=== PATIENT | male | born 1950 | race Caucasian/White ===

== ENCOUNTER 2016-10-11 06:51 | Day surgery (SDC) | payer OTHER, BC ==
[2016-10-11] MEDS ORDERED: NS 500 ML IV 500 ML IV ONE (07:22)
[2016-10-11] MEDS ORDERED: TETRACAINE 0.5% OPHTH 1 DOSE AFFEYE ONE ×6 (07:25→10:59)
[2016-10-11] MEDS ORDERED: VIGAMOX 0.5% OPHTH 1 DOSE AFFEYE ONE ×6 (07:30→11:13)
[2016-10-11] MEDS ORDERED: PROLENSA OPHTH 1 DOSE AFFEYE ONE (07:41)
[2016-10-11] MEDS ORDERED: ALPHAGAN-P OPHTH 1 DOSE AFFEYE ONE (07:42)
[2016-10-11] MEDS ORDERED: CYCLOGYL 1% OPHTH 1 DOSE OP ONE ×3 (07:43→07:45)
[2016-10-11] MEDS ORDERED: AK-DILATE 2.5% OPHTH 1 DOSE OP ONE ×3 (07:43→07:45)
[2016-10-11] MEDS ORDERED: MYDRIACIL OPHTH 1 DOSE AFFEYE ONE ×3 (07:43→07:45)
[2016-10-11] MEDS: VERSED ONE ×5 (10:05→10:34)
[2016-10-11] MEDS ORDERED: AK-DILATE 10% OPHTH 1 DOSE AFFEYE ONE ×3 (10:06→10:35)
[2016-10-11] MEDS ORDERED: BETADINE OPHTH SOLN 5% EACHEYE ONE (10:42)
[2016-10-11] MEDS ORDERED: XYLOCAINE-MPF 1% IJ ONE ×2 (10:49→10:59)
[2016-10-11] MEDS ORDERED: DUOVISC IO ONE ×2 (10:49→10:59)
[2016-10-11] MEDS ORDERED: ADRENALINE CHL INJ IJ ONE ×2 (10:49→10:59)
[2016-10-11] MEDS ORDERED: BSS OPHTH (PLAIN) 500 ML with VANCOMYCIN HCL 500 MG VIAL 25 MG, ADRENALINE CHL INJ 1 MG IR ONE ×6 (10:50)
[2016-10-11] MEDS ORDERED: MIOCHOL-E IO ONE (11:10)
[2016-10-11 11:37] VITALS: BP 161/86
== END 2016-10-11 11:38 | disposition home or self-care (01) ==
LOC: SURG1 06:51
PROVIDERS: ATTEND Ophthalmology
PROC: 08J1XZZ Inspection of Left Eye, External Approach (ICD-10-PCS; principal; 2016-10-11 09:45)
PROC: 08DK3ZZ Extraction of Left Lens, Percutaneous Approach (ICD-10-PCS; principal; 2016-10-11 09:45)
PROC: 08RK3JZ Replacement of Left Lens with Synthetic Substitute, Percutaneous Approach (ICD-10-PCS; principal; 2016-10-11 09:45)
DX: H25.12 Age-related nuclear cataract, left eye (principal); H25.012 Cortical age-related cataract, left eye; H52.222 Regular astigmatism, left eye
CPT/HCPCS: A4217; J0170; J2250; J3370

== ENCOUNTER → 2016-12-31 | Outpatient (CLI) | payer OTHER | END | disposition home or self-care (01) | LOC: LAB 09:14 | PROVIDERS: ATTEND Internal Medicine | DX: R19.7 Diarrhea, unspecified (principal) | CPT/HCPCS: 82270 ==

== ENCOUNTER 2020-04-06 11:33 | Inpatient (IN) ==
[2020-04-06 12:39] LABS: BILIRUBIN,URINE NEGATIVE (NEGATIVE); BLOOD/HEMOGLOBIN,URINE NEGATIVE (NEGATIVE); GLUCOSE, URINE NEGATIVE (NEGATIVE); KETONES,URINE NEGATIVE (NEGATIVE); LEUKOCYTE ESTERASE ,URINE NEGATIVE (NEGATIVE); NITRITES,URINE NEGATIVE (NEGATIVE); PROTEIN,URINE 2+ (NEGATIVE); UROBILINOGEN,URINE NORMAL (NORMAL)
--- NOTE | 2020-04-06 12:39 | DR.SOBA ---
[facility] Time Seen Time Seen by Provider: 04/06/20 12:31 Primary Care Physician Primary Care Physician: DR MEEK HPI Comment HPI Comment: PATIENT IS 89 YR OLD MALE IN ER WITH INCREASING SOB, LOW OXYGEN SATURATION AND STABBING INTERMITTENT 9/10 SUBSTERNAL CHEST PAIN RADIATING TO THE BACK. PAIN ASSOCIATED WITH PRODUCTIVE COUGH, YELLOW SPUTUM AND GENERALIZED WEAKNESS AND BODY ACHES. PAIN WORSE WITH DEEP BREATHING AND EXERTION AND IMPROVE WITH REST. COVID 19 POSITIVE ON ZITHROMAX AND PREDNISONE. HISTORY CAD AND HYPERTENSION. Complaints Chief Complaint Doctors Comments: CHEST PAIN, INCREASING SOB AND O2 DESATURATION. Chief Complaint:: PT TEST POSITIVE FOR COVID MONDAY AND HAS BEEN TREATED WITH ZITHROMAX AND STEROIDS. SINCE THEN PT HAS HAD INCREASING SHORTNESS OF BREATH WI TH OXYGEN SATURATION 50%. PT ALSO C/O SHARP STABBING SUBSTERNAL CHEST PAIN THAT IS INTERMITTENT AND WORSE WITH TAKING A DEEP BREATH.PT SPOKE WITH PCP THIS MORNING WHO DIRECTED HIM TO THE ER COVID-19 Coronavirus risk:travel/contact w/high risk person: No Has patient experienced Coronavirus symptoms: Yes Coronavirus symptoms experienced: Coughing and Shortness of Breath Reviewed Nurses Notes Reviewed: Yes Source History Provided: Patient Mode of Arrival Mode of Arrival: Ambulatory Timing Onset of Chief Complaint: 04/06/20 Duration Duration: Days Context Onset:: At Rest PE Risk Factors:: None History of:: None Currently on:: Steroids Prehospital Care:: None Modifying Factors Worsens:: Exertion Improves:: Sitting Up Associated Signs and Symptoms Associated Signs and Symptoms: Cough and Chest Pain If Chest Pain Quality: Stabbing Location: Substernal If Cough Cough: Productive and Yellow Other History Other History: CAD, HTN. PMH PMH Past Medical History: Yes Past Medical History: Arthritis, Coronary Artery Disease, Dyslipidemia, Hypertension and Kidney Stones Past Medical History Comment: FIBROMYALGIA, AFIB Past Surgical History: Yes Surgical History: Angioplasty/Stents and Lithotripsy Family History History of Family Medical Conditions: Yes Family Medical History: [place] Social History Does patient currently use any type of tobacco product: No Have you used tobacco products in the last 12 months: No Type of Tobacco Use: None Does any household member use tobacco: No Alcohol Use: None Do you use any recreational Drugs:: No Lives With: Family Lives Where: Home Travel Risk Coronavirus risk:travel/contact w/high risk person: No Has patient experienced Coronavirus symptoms: No Infectious screening In the last 2 months have you had wt loss of >10#?: NO Have you had fever, night sweats or hemotysis?: No Have you traveled outside the country in the last 6 months?: No Isolation: Droplet ROS Review of Systems Constitutional: See HPI, Weakness, Fatigue and Loss of Appetite; negative Fever Eyes: No Symptoms Reported and See HPI ENTM: See HPI, Nose Discharge and Nose Congestion; negative Ear Pain and Throat Pain Respiratoy: See HPI, Productive Cough and Short of Breath; negative Wheezing Cardiovascular: See HPI and Chest Pain Gastrointestinal/Abdominal: No Symptoms Reported and See HPI; negative Abdominal Pain, Diarrhea and Vomiting Genitourinary: No Symptoms Reported and See HPI; negative Dysuria, Frequency and Hematuria Neurological: See HPI, Headache and Weakness; negative Dizziness Musculoskeletal: See HPI and Muscle Pain; negative Back Pain Integumentary: No Symptoms Reported and See HPI; negative Change in Color, Rash and Juandice Hematologic/Lymphatic: No Symptoms Reported, See HPI and Easy Bruising; negative Swollen Glands Endocrine: No Symptoms Reported, See HPI and Decreased Appetite; negative Increased Thirst and Increased Urine Psychiatric: No Symptoms Reported and See HPI All Other Systems: Reviewed and Negative PE Vital Signs Vitals: Temperature 98.9 F Pulse Rate 82 Respiratory Rate 22 Blood Pressure 141/72 O2 Sat by Pulse Oximetry 99 General Limitations: No Limitations General Appearance: Alert and In No Apparent Distress Head Head Exam: Normal Inspection and Atraumatic Eyes Eye exam: Normal Appearance and PERRL; negative Scleral Icterus and Conjunctival Injection ENT ENT Exam: Normal Exam, Normal Oropharynx, Normal External Ear Exam and TM's Normal Bilaterally Neck Neck Exam: Normal Inspection and Trachea Midline; negative Tenderness and Lymphadenopathy Chest Chest Inspection: Normal Inspection and Symmetric Chest Wall Rise; negative Tenderness Respiratory Respiratory Exam: Normal Lung Sounds Bilat and Respiratory Distress; negative Accessory Muscle Use and Chest Wall Tenderness Respiratory Exam: Bilateral: Rhonchi and Lower: Rhonchi Cardiovascular Cardiovascular Exam: Regular Rate, Normal Rhythm and Normal Heart Sounds; negative Systolic Murmur and Diastolic Murmur Abdominal Exam Abdominal Exam: Normal Inspection, Normal Bowel Sounds and Soft; negative Tenderness Extremities Extremities Exam: Normal Inspection and Normal Capillary Refill; negative Tenderness and Calf Tenderness Back Back Exam: Normal Inspection; negative (R) CVA Tenderness and (L) CVA Tenderness Neurologic Neurological Exam: Alert and Oriented X3; negative Motor Sensory Deficit Psychiatric Psychiatric Exam: Normal Affect and Normal Mood Skin Skin Exam: Warm, Dry, Intact and Normal Color MDM Additional Information Obtained Additional Information Obtained From: Old Records Differential Diagnosis Differential Diagnosis: Bronchitis, CHF, Dysrhythmia, Hyponatremia, Mycardial Infarction, Pneumonia, Respiratory Insufficiency, Sinusitis and URI COURSE Treatment Treatment: SEE ORDERS. ZOSYN 3.375 MG IVPB Consultation Consultation Comments: PATIENT ADMITTED TO DR. MEEK SERVICE. Education/Counseling Education/Counseling: Patient Educated On: Diagnosis ROR Labs Reviewed Laboratory Results Reviewed?: Yes Result Diagrams: 04/09/20 04:25 04/09/20 04:25 Laboratory: 04/06/20 12:50 Blood Blood Culture - Preliminary 04/06/20 12:45 Blood Blood Culture - Preliminary WBC 5.2 X10^3/uL (3.6-10.0) 04/06/20 12:50 RBC 4.50 X10^6/uL (4.7-6.0) L 04/06/20 12:50 Hgb 14.1 g/dL (13.5-18.0) 04/06/20 12:50 Hct 41.2 % (42.0-54.0) L 04/06/20 12:50 MCV 91.6 fL (80.0-100.0) 04/06/20 12:50 MCH 31.4 pg (27.0-34.0) 04/06/20 12:50 MCHC 34.3 g/dL (33.0-35.0) 04/06/20 12:50 RDW 14.6 % (11.6-16.5) 04/06/20 12:50 Plt Count 110 X10^3/uL (150.0-450.0) L 04/06/20 12:50 MPV 7.3 fL (7.4-11.0) L 04/06/20 12:50 Neut % (Auto) 82.9 % (42.0-75.0) H 04/06/20 12:50 Lymph % (Auto) 10.4 % (21.0-51.0) L 04/06/20 12:50 [place] % (Auto) 6.5 % (0.0-13.0) 04/06/20 12:50 Eos % (Auto) 0.0 % (0.9-2.9) L 04/06/20 12:50 Baso % (Auto) 0.2 % (0.2-1.0) 04/06/20 12:50 Neut # (Auto) 4.3 x10^3/uL (2.2-4.8) 04/06/20 12:50 Lymph # (Auto) 0.5 X10^3/uL (1.3-2.9) L 04/06/20 12:50 [place] # (Auto) 0.3 x10^3/uL (0.3-0.8) 04/06/20 12:50 Eos # (Auto) 0.0 x10^3/uL (0.0-0.2) 04/06/20 12:50 Baso # (Auto) 0.0 X10^3/uL (0.0-0.1) 04/06/20 12:50 Absolute Nucleated RBC 0.0 /100WBC 04/06/20 12:50 Sample Site Right radial 04/06/20 12:45 ABG pH 7.480 (7.35-7.45) H 04/06/20 12:45 ABG pCO2 30.0 mmHg (35.0-45.0) L 04/06/20 12:45 ABG pO2 76.0 mmHg (80.0-100.0) L 04/06/20 12:45 ABG HCO3 22.3 mmol/L (22-26) 04/06/20 12:45 ABG O2 Saturation 96.0 % (90-100) 04/06/20 12:45 ABG Base Excess -0.4 mmol/L (-2.0-2.0) 04/06/20 12:45 Jose Test Pos 04/06/20 12:45 A-a Gradient 36.0 mmHg 04/06/20 12:45 FiO2 21.0 04/06/20 12:45 Blood Gas Comments Carmelo well cb 04/06/20 12:45 Sodium 137 mmol/L (136-145) 04/06/20 12:50 Corrected Sodium TNP 04/06/20 12:50 Potassium 4.1 mmol/L (3.5-5.1) 04/06/20 12:50 Chloride 102 mmol/L (98-107) 04/06/20 12:50 Carbon Dioxide 28.1 mmol/L (21-32) 04/06/20 12:50 BUN 28 mg/dL (7-18) H 04/06/20 12:50 Creatinine 1.48 mg/dL (0.70-1.30) H 04/06/20 12:50 Est GFR (MDRD) Af Amer > 60 (>60) 04/06/20 12:50 Est GFR (MDRD) Non-Af 50 (>60) L 04/06/20 12:50 Glucose 91 mg/dL (65-99) 04/06/20 12:50 Lactic Acid 1.6 mmol/L (0.4-2.0) 04/06/20 12:50 Calcium 8.2 mg/dL (8.5-10.1) L 04/06/20 12:50 Corrected Calcium 8.8 mg/dL (8.5-10.1) 04/06/20 12:50 Ferritin 2202 ng/mL (26-388) H 04/06/20 12:50 Total Bilirubin 0.90 mg/dL (0.2-1.0) 04/06/20 12:50 AST 73 Units/L (15-37) H 04/06/20 12:50 ALT 64 Units/L (12-78) 04/06/20 12:50 Alkaline Phosphatase 85 Units/L (46-116) 04/06/20 12:50 Lactate Dehydrogenase 372 Units/L (85-227) H 04/06/20 12:50 Creatine Kinase 99 Units/L (39-308) 04/06/20 12:50 CK-MB (CK-2) < 1.0 ng/mL (0-4.0) 04/06/20 12:50 CK/CKMB % Calc 1.0 % (<4) 04/06/20 12:50 Troponin I < 0.02 ng/mL (0-1.5) 04/06/20 12:50 C-Reactive Protein 63.10 mg/L (0-3.0) H 04/06/20 12:50 Total Protein 7.2 g/dL (6.4-8.2) 04/06/20 12:50 Albumin 3.2 g/dL (3.4-5.0) L 04/06/20 12:50 Globulin 4.0 g/dL (2.5-4.5) 04/06/20 12:50 Albumin/Globulin Ratio 0.8 Ratio (1.1-2.1) L 04/06/20 12:50 Specimen Type Clean catch urine 04/06/20 12:34 Urine Color Yellow (YELLOW) 04/06/20 12:34 Urine Appearance Clear (CLEAR) 04/06/20 12:34 Urine pH 5.0 (5.0 - 8.0) 04/06/20 12:34 Ur Specific [place] 1.020 (1.000-1.030) 04/06/20 12:34 Urine Protein 2+ (NEGATIVE) 04/06/20 12:34 Urine Glucose (UA) Negative (NEGATIVE) 04/06/20 12:34 Urine Ketones Negative (NEGATIVE) 04/06/20 12:34 Urine Occult Blood Negative (NEGATIVE) 04/06/20 12:34 Urine Nitrite Negative (NEGATIVE) 04/06/20 12:34 Urine Bilirubin Negative (NEGATIVE) 04/06/20 12:34 Urine Urobilinogen Normal (NORMAL) 04/06/20 12:34 Ur Leukocyte Esterase Negative (NEGATIVE) 04/06/20 12:34 Urine RBC None seen /HPF (0-3) 04/06/20 12:34 Urine WBC None seen /HPF (0-5) 04/06/20 12:34 Ur Squamous Epith Cells Negative /HPF (NEGATIVE) 04/06/20 12:34 Ur Renal Epithelial Cell Rare /HPF (NEGATIVE) 04/06/20 12:34 Amorphous Sediment Trace /HPF (NEGATIVE) 04/06/20 12:34 Urine Bacteria Negative /HPF (NEGATIVE) 04/06/20 12:34 Ur Culture Indicated? No/not indicated 04/06/20 12:34 XRAY XRAY Interpreted by: Radiologist (REPORT NOTED AND DISCUSSED WITH PATIENT.) and Self EKG Rate: 87 [place]: Normal Rhythm: NSR and PACs Block: None Hypertrophy: None ST: Old, Ant, Infarct and Nonsp Opioid Opioid Risk Tool Age ([place] box if 16-45): No History of Preadolescent Sexual Abuse: No Total: 0 Total Score Risk Category: Low Risk Copyright: [facility] predicting aberrant behaviors Diagnosis Discharge Problem: COVID-19, Shortness of breath Pneumonia Qualifiers: Pneumonia type: due to unspecified organism Laterality: bilateral Lung location: lower lobe of lung Qualified Code(s): J18.9 - Pneumonia, unspecified organism
[2020-04-06 12:46] LABS: APPEARANCE,URINE CLEAR (CLEAR); COLOR,URINE YELLOW (YELLOW)
[2020-04-06 12:47] LABS: AMORPHOUS SEDIMENT,UR TRACE /HPF (NEGATIVE); BACTERIA,URINE NEGATIVE /HPF (NEGATIVE); RBC,URINE NONE SEEN /HPF (0-3); RENAL EPITHELIAL CELLS,URINE RARE /HPF (NEGATIVE); SQUAMOUS EPITHELIAL CELL,UR NEGATIVE /HPF (NEGATIVE)
[2020-04-06 12:58] LABS: ABG ALLEN TEST POS; ABG BASE EXCESS -0.4 mmol/L (-2.0-2.0); ABG HCO3 22.3 mmol/L (22-26)
[2020-04-06] MEDS ORDERED: XANAX PO ONE (13:00)
[2020-04-06 13:02] LABS: BASOPHILS % (AUTO) 0.2 % (0.2-1.0); HEMATOCRIT 41.2 % (42.0-54.0); HEMOGLOBIN 14.1 g/dL (13.5-18.0); LYMPHOCYTES # (AUTO) 0.5 X10^3/uL (1.3-2.9); LYMPHOCYTES % (AUTO) 10.4 % (21.0-51.0); MEAN CORPUSCULAR HEMOGLOBIN 31.4 pg (27.0-34.0); MEAN CORPUSCULAR HGB CONC 34.3 g/dL (33.0-35.0); MEAN CORPUSCULAR VOLUME 91.6 fL (80.0-100.0); MEAN PLATELET VOLUME 7.3 fL (7.4-11.0); MONOCYTES # (AUTO) 0.3 x10^3/uL (0.3-0.8); MONOCYTES % (AUTO) 6.5 % (0.0-13.0); NEUTROPHILS # (AUTO) 4.3 x10^3/uL (2.2-4.8); NEUTROPHILS % (AUTO) 82.9 % (42.0-75.0); PLATELET COUNT 110 X10^3/uL (150.0-450.0); RED CELL DISTRIBUTION WIDTH 14.6 % (11.6-16.5); WHITE BLOOD COUNT 5.2 X10^3/uL (3.6-10.0)
[2020-04-06] MEDS ORDERED: XANAX ONE (13:05)
[2020-04-06] MEDS ORDERED: NS 1000 ML 1,000 ML ONE (13:05)
[2020-04-06] MEDS ORDERED: ZOSYN VIAL 3.375 GRAMS 3.375 G in NS 100 ML IV + SPIKE MINIBAG* 100 ML IV ONE (13:14)
[2020-04-06 13:15] LABS: LACTIC ACID 1.6 mmol/L (0.4-2.0)
[2020-04-06 13:25] LABS: ALANINE AMINOTRANSFERASE 64 Units/L (12-78); ALKALINE PHOSPHATASE 85 Units/L (46-116); ASPARTATE AMINO TRANSFERASE 73 Units/L (15-37); BLOOD UREA NITROGEN 28 mg/dL (7-18); CALCIUM 8.2 mg/dL (8.5-10.1); CARBON DIOXIDE 28.1 mmol/L (21-32); CHLORIDE 102 mmol/L (98-107); CREATININE 1.48 mg/dL (0.70-1.30); SODIUM 137 mmol/L (136-145); TOTAL PROTEIN 7.2 g/dL (6.4-8.2); eGFR NON BLACK RACES 50 (>60)
[2020-04-06] MEDS: NS 1000 ML 1,000 ML IV SCH ×2 (13:26→20:59)
[2020-04-06 13:30] LABS: ALBUMIN 3.2 g/dL (3.4-5.0); COR CA(FOR HYPOALB) 8.8 mg/dL (8.5-10.1)
[2020-04-06 13:35] LABS: CREATINE KINASE 99 Units/L (39-308); CREATINE KINASE MB < 1.0 ng/mL (0-4.0); LACTATE DEHYDROGENASE 372 Units/L (85-227)
[2020-04-06 13:51] LABS: TROPONIN I < 0.02 ng/mL (0-1.5)
[2020-04-06] MEDS ORDERED: ZOSYN VIAL 3.375 GRAMS IV ONE (14:09)
[2020-04-06] MEDS ORDERED: NS 100 ML IV + SPIKE MINIBAG* 100 ML IV ONE (14:09)
[2020-04-06] MEDS: ZOSYN VIAL 3.375 GRAMS 3.375 G in NS 100 ML IV + SPIKE MINIBAG* 100 ML IV SCH ×2 (15:14→23:06)
--- NOTE | 2020-04-06 15:27 | RAD ---
HISTORY:Shortness of breath, COVID-19 positiveStudy: Single view chestComparison:NoneFindings:Lung volumes are reduced. There are bilateral multifocal lung infiltrates compatible with pneumonia. No pleural effusion or pneumothorax identified.Cardiac and mediastinal contours are within normal limits .The soft tissues are intact .IMPRESSION:1. Bilateral multifocal infiltrates compatible with pneumonia.Electronically signed by: SUSIE GALLEGOS (Apr 06, 2020 15:26:46)
[2020-04-06 16:19] VITALS: BMI 32.9
[2020-04-06] MEDS ORDERED: REMDESIVIR (INVESTIGATIONAL DRUG GS-5734) 200 MG in NS 250 ML IV 250 ML IV SCH (16:33)
[2020-04-06] MEDS: DUONEB 0.5 MG/3 MG (3 mL) NEB SCH ×2 (17:15→21:20)
[2020-04-06] MEDS: ROBITUSSIN DM PO SCH ×2 (17:52→23:06)
[2020-04-06] MEDS ORDERED: NS 500 ML IV 500 ML IV ONE (18:11)
[2020-04-06] MEDS: NS 500 ML IV 500 ML IV PRN (18:18)
[2020-04-06] MEDS: NORCO 10/325 TAB PO PRN (19:18)
[2020-04-06] MEDS: LEVAQUIN PREMIX IV 750 MG 750 MG/150 ML BAG IV SCH (20:38)
[2020-04-06] MEDS: MUCOMYST (RESPIRATORY USE ONLY) NEB SCH (21:20)
[2020-04-06] MEDS: PULMICORT NEB TX 0.5 MG NEB SCH (21:20)
[2020-04-07] MEDS ORDERED: ZOFRAN INJ 4 MG VIAL ONE (00:28)
[2020-04-07] MEDS: ZOFRAN INJ 4 MG VIAL IVP PRN ×2 (00:39→08:25)
[2020-04-07] MEDS: NS 1000 ML 1,000 ML IV SCH ×3 (04:08→22:14)
[2020-04-07] MEDS: NORCO 10/325 TAB PO PRN ×3 (04:30→20:25)
[2020-04-07] MEDS: ZOSYN VIAL 3.375 GRAMS 3.375 G in NS 100 ML IV + SPIKE MINIBAG* 100 ML IV SCH ×3 (05:02→21:57)
[2020-04-07 06:15] LABS: BASOPHILS % (AUTO) 0.2 % (0.2-1.0); HEMATOCRIT 40.4 % (42.0-54.0); HEMOGLOBIN 14.3 g/dL (13.5-18.0); LYMPHOCYTES # (AUTO) 0.6 X10^3/uL (1.3-2.9); LYMPHOCYTES % (AUTO) 14.1 % (21.0-51.0); MEAN CORPUSCULAR HEMOGLOBIN 32.6 pg (27.0-34.0); MEAN CORPUSCULAR HGB CONC 35.3 g/dL (33.0-35.0); MEAN CORPUSCULAR VOLUME 92.3 fL (80.0-100.0); MEAN PLATELET VOLUME 7.8 fL (7.4-11.0); MONOCYTES # (AUTO) 0.2 x10^3/uL (0.3-0.8); MONOCYTES % (AUTO) 6.1 % (0.0-13.0); NEUTROPHILS # (AUTO) 3.2 x10^3/uL (2.2-4.8); NEUTROPHILS % (AUTO) 79.6 % (42.0-75.0); PLATELET COUNT 97 X10^3/uL (150.0-450.0); RED BLOOD COUNT 4.38 X10^6/uL (4.7-6.0); RED CELL DISTRIBUTION WIDTH 14.1 % (11.6-16.5)
[2020-04-07 06:29] LABS: ALANINE AMINOTRANSFERASE 53 Units/L (12-78); ALBUMIN 2.6 g/dL (3.4-5.0); ALKALINE PHOSPHATASE 75 Units/L (46-116); ASPARTATE AMINO TRANSFERASE 63 Units/L (15-37); BLOOD UREA NITROGEN 25 mg/dL (7-18); CALCIUM 7.8 mg/dL (8.5-10.1); CARBON DIOXIDE 22.8 mmol/L (21-32); CHLORIDE 104 mmol/L (98-107); COR CA(FOR HYPOALB) 8.9 mg/dL (8.5-10.1); CREATININE 1.32 mg/dL (0.70-1.30); SODIUM 137 mmol/L (136-145); TOTAL PROTEIN 6.4 g/dL (6.4-8.2); eGFR NON BLACK RACES 57 (>60)
--- NOTE | 2020-04-07 06:36 | RAD ---
HISTORYShort of breathSTUDYCHEST, 1 VIEWCOMPARISONOne day priorTECHNIQUEAP view of the chestFINDINGSCardiac silhouette is stably enlarged. No significant change in scattered bilateral airspace disease. No pleural effusion or pneumothorax.IMPRESSIONNo significant change.Electronically signed by: David Kim (Apr 07, 2020 06:35:43)
[2020-04-07 07:25] LABS: ABG BASE EXCESS 0.1 mmol/L (-2.0-2.0); ABG HCO3 23.6 mmol/L (22-26)
[2020-04-07 07:26] LABS: ABG ALLEN TEST POS
[2020-04-07] MEDS: REMDESIVIR (INVESTIGATIONAL DRUG GS-5734) 100 MG in NS 250 ML IV 250 ML IV SCH (08:51)
[2020-04-07] MEDS: VSL#3 PO SCH (08:52)
[2020-04-07] MEDS: LOVENOX INJ 30 MG SYR SC SCH ×2 (08:52→20:24)
[2020-04-07] MEDS: ROBITUSSIN DM PO SCH ×4 (08:52→20:25)
[2020-04-07] MEDS: LEVAQUIN PREMIX IV 750 MG 750 MG/150 ML BAG IV SCH (09:25)
[2020-04-07] MEDS: PULMICORT NEB TX 0.5 MG NEB SCH ×2 (09:30→20:30)
[2020-04-07] MEDS: MUCOMYST (RESPIRATORY USE ONLY) NEB SCH ×2 (09:30→17:05)
[2020-04-07] MEDS: DUONEB 0.5 MG/3 MG (3 mL) NEB SCH ×2 (09:30→12:15)
--- NOTE | 2020-04-07 11:10 | DR.H&P ---
H&P - History & Physical for Day of: H&P Date: 04/06/20 - Chief Complaint Chief Complaint: SOB, COUGH, FEVER, LOW OXYGEN SATURATIONS, WHEEZING - History of Present Illness History of Present Illness: IS A 69 YEAR OLD PATIENT OF OURS. HE PRESENTED TO THE ER WITH COMPLAINTS OF INCREASING SHORTNESS OF BREATH, COUGH, AND FEVER. HE ALSO REPORTED STABBING SUBSTERNAL CHEST PAIN. HE ADMITS TO TESTING POSITIVE FOR COVID-19 ON 04/02/20. SYMPTOMS HAVE PROGRESSIVELY GOTTEN WORSE SINCE LAST WEEK. HE HAS BEEN TAKING ZITHROMAX AND A MEDROL DOSEPACK WITHOUT IMPROVEMENT IN SYMPTOMS. HE REPORTS THAT HIS OXYGEN SATURATIONS HAVE DROPPED TO THE 50s AT HOME. HIS PMH INCLUDES: ARTHRITIS, CAD, DYSLIPIDEMIA, HTN, KIDNEY STONES, FIBROMYALGIA, AND ATRIAL FIBRILLATION. ON ARRIVAL TO THE ER, VITALS WERE 98.9-88-22-94%RA-130/77. LABS WERE OBTAINED. ABNORMAL LAB VALUES INCLUDE THE FOLLOWING: RBC 4.50, HCT 41.2, PLT COUNT 110, BUN 28, CREATININE 1.48, CALCIUM 8.2, FERRITIN 222, AST 73, ALBUMIN 3.2, CRP 63.10, LDH 372. CARDIAC ENZYMES WITHIN NORMAL LIMITS. AN ABG WAS OBTAINED AND REVEALED: PH 7.480, PC02 30, P02 76, HC03 22.3, 02 SAT 96, FI02 21. URINALYSIS UNREMARKABLE. BLOOD CULTURES WERE SET UP. A CHEST XRAY WAS OBTAINED AND REVEALED: 1. Bilateral multifocal infiltrates compatible with pneumonia. EKG REVEALED: SINUS RHYTHM WITH HR 87. HE WAS ANXIOUS AND AGITATED IN THE ER. HE WAS GIVEN XANAX 0.5MG PO X 1 DOSE. HE WAS ADMITTED TO THE HOSPITAL FOR FURTHER EVALUATION AND TREATMENT OF PNEUMONIA DUE TO COVID-19. HE WAS STARTED ON NS AT 125 ML/HR, ZOSYN 3.375G IV TID, LEVAQUIN 750MG IV DAILY, REMDESIVIR 200MG IV X 1 DOSE, THEN 100MG IV DAILY, DUONEBS QID, PULMICORT NEBS BID, MUCOMYST IN NEB [place] BID, TUSSIONEX 5ML PO Q12H PRN, ROBITUSSIN DM 10 ML PO QID, LOVENOX 30MG SC BID, ZOFRAN 4MG IV Q6H PRN, AND NORCO 10/325MG PO Q8H. OTHERWISE, WE PLAN TO FOLLOW UP WITH AM LABS, ABG, AND CHEST XRAY, AND CONTINUE TO MONITOR. TIME SPENT WITH PATIENT ON REVIEWING CHART, EXAMINATION, COUNSELING, AND PLAN OF CARE GREATER THAN 70 MINUTES. - Past Medical History Past Medical History: Coronary Artery Disease, Hypertension, Dyslipidemia, Arthritis, Kidney Stones - Past Surgical History Surgical History: Angioplasty/Stents, Lithotripsy - Family History Family Medical History: Diabetes Mellitus - Social History Does patient currently use any type of tobacco product: No Have you used tobacco products in the last 12 months: No Type of Tobacco Use: None Does any household member use tobacco: No Alcohol Use: None Drug Use: None - Medications Home Medications: No Known Drug Allergies Allergy (Verified 04/06/20 14:55) CONTINUE taking the following medications alprazolam 0.5 mg PO Q8H PRN 04/06/20 [History] amoxicillin-pot clavulanate 1 tab PO BID 04/06/20 [History] aspirin [Addy Aspirin] 325 mg PO DAILY 04/06/20 [History] azithromycin 500 mg PO DAILY 04/06/20 [History] bumetanide 1 mg PO QAM 04/06/20 [History] cetirizine [Zyrtec] 10 mg PO DAILY 04/06/20 [History] hydrocodone-acetaminophen 325 tab PO Q8-10H PRN 04/06/20 [History] hydroxychloroquine 200 mg PO BID 04/06/20 [History] lisinopril-hydrochlorothiazide 1 tab PO BID 04/06/20 [History] metoprolol tartrate 50 mg PO TID 04/06/20 [History] potassium chloride 20 meq PO BID 04/06/20 [History] prasugrel [Effient] 10 mg PO DAILY 04/06/20 [History] - Review of Systems Constitutional: See HPI, Fever, Weakness Eyes: No Symptoms Reported ENT: No Symptoms Reported Respiratory: See HPI, Cough, Shortness of Breath, SOB with Excertion, Wheezing Cardiovascular: No Symptoms Reported Gastrointestinal: No Symptoms Reported Genitourinary: No Symptoms Reported Musculoskeletal: No Symptoms Reported Skin: No Symptoms Reported Neurological: Weakness - Physical Exam Vital Signs: Temperature 99.8 F Pulse Rate [Right Radial] 62 Pulse Rate 85 Respiratory Rate 23 Blood Pressure [Right Arm] 128/61 Blood Pressure 140/72 O2 Sat by Pulse Oximetry 90 Oriented: Normal Eyes: Normal Ear: Normal Nose: Normal Throat: Normal Respiratory: Wheezes Throughout Cardiovascular: Normal : Normal Auscultation: Bowel Sounds: Normal Palpation: Normal Tenderness: Normal Skin: Normal Musculoskeletal: Normal Psychiatric: Normal Mood Description: Calm Affect: Normal Speech Pattern: Clear - Assessment/Plan (1) Pneumonia due to 2019 novel coronavirus Status: Acute Plan: NS AT 125 ML/HR, ZOSYN 3.375G IV TID, LEVAQUIN 750MG IV DAILY, REMDESIVIR 200MG IV X 1 DOSE, THEN 100MG IV DAILY, DUONEBS QID, PULMICORT NEBS BID, MUCOMYST IN NEB [place] BID, TUSSIONEX 5ML PO Q12H PRN, ROBITUSSIN DM 10 ML PO QID, LOVENOX 30MG SC BID, ZOFRAN 4MG IV Q6H PRN, AND NORCO 10/325MG PO Q8H, SUPPLEMENTAL OXYGEN (2) Shortness of breath Status: Acute - Allergies Allergies/Adverse Reactions: Allergies Allergy/AdvReac Type Severity Reaction Status Date / Time No Known Drug Allergies Allergy Verified 04/06/20 14:55
[2020-04-07] MEDS ORDERED: XOPENEX 1.25 MG/3 ML NEBULE NEB ONE (11:57)
[2020-04-07] MEDS: XANAX PO PRN (12:02)
[2020-04-07] MEDS: XOPENEX 1.25 MG/3 ML NEBULE NEB SCH ×2 (12:15→17:05)
[2020-04-07] MEDS ORDERED: XANAX PO ONE (17:14)
[2020-04-08] MEDS: XANAX PO PRN ×2 (02:53→21:15)
[2020-04-08] MEDS: ZOFRAN INJ 4 MG VIAL IVP PRN ×2 (02:54→15:00)
[2020-04-08] MEDS: NS 1000 ML 1,000 ML IV SCH ×3 (04:07→21:16)
[2020-04-08 04:50] LABS: ABG ALLEN TEST POS; ABG BASE EXCESS 0.3 mmol/L (-2.0-2.0); ABG HCO3 24.6 mmol/L (22-26)
[2020-04-08] MEDS: MUCOMYST (RESPIRATORY USE ONLY) NEB SCH ×5 (05:05→18:39)
[2020-04-08] MEDS: XOPENEX 1.25 MG/3 ML NEBULE NEB SCH ×5 (05:05→18:40)
[2020-04-08 05:14] LABS: BASOPHILS % (AUTO) 0.4 % (0.2-1.0); EOSINOPHILS % (AUTO) 0.1 % (0.9-2.9); HEMATOCRIT 40.5 % (42.0-54.0); HEMOGLOBIN 13.9 g/dL (13.5-18.0); LYMPHOCYTES # (AUTO) 0.5 X10^3/uL (1.3-2.9); LYMPHOCYTES % (AUTO) 11.3 % (21.0-51.0); MEAN CORPUSCULAR HEMOGLOBIN 31.6 pg (27.0-34.0); MEAN CORPUSCULAR HGB CONC 34.4 g/dL (33.0-35.0); MEAN CORPUSCULAR VOLUME 91.9 fL (80.0-100.0); MEAN PLATELET VOLUME 8.1 fL (7.4-11.0); MONOCYTES # (AUTO) 0.3 x10^3/uL (0.3-0.8); MONOCYTES % (AUTO) 6.8 % (0.0-13.0); NEUTROPHILS # (AUTO) 3.9 x10^3/uL (2.2-4.8); NEUTROPHILS % (AUTO) 81.4 % (42.0-75.0); PLATELET COUNT 93 X10^3/uL (150.0-450.0); RED BLOOD COUNT 4.41 X10^6/uL (4.7-6.0); RED CELL DISTRIBUTION WIDTH 14.6 % (11.6-16.5); WHITE BLOOD COUNT 4.8 X10^3/uL (3.6-10.0)
[2020-04-08 05:37] LABS: ALANINE AMINOTRANSFERASE 46 Units/L (12-78); ALBUMIN 2.5 g/dL (3.4-5.0); ALKALINE PHOSPHATASE 73 Units/L (46-116); ASPARTATE AMINO TRANSFERASE 64 Units/L (15-37); BLOOD UREA NITROGEN 21 mg/dL (7-18); CARBON DIOXIDE 22.8 mmol/L (21-32); CHLORIDE 104 mmol/L (98-107); COR CA(FOR HYPOALB) 9.2 mg/dL (8.5-10.1); SODIUM 137 mmol/L (136-145); TOTAL PROTEIN 6.4 g/dL (6.4-8.2); eGFR NON BLACK RACES > 60 (>60)
--- NOTE | 2020-04-08 05:40 | RAD ---
HISTORYSOBSTUDYCHEST, 1 [id number] trachea is midline. The cardiac silhouette is stable slight interval increase in hazy opacity at the bilateral middle lung zone.. Patchy left basilar atelectasis/infiltrates, more pronounced compared to prior exam. No pneumothorax.. The bony thorax is unremarkable.IMPRESSIONInterval increase in bilateral perihilar and left basilar patchy infiltrates/opacities. Findings may be related to worsening pulmonary edema and/or infiltrates.Electronically signed by: Jossy Price (Apr 08, 2020 05:40:46)
[2020-04-08] MEDS: ZOSYN VIAL 3.375 GRAMS 3.375 G in NS 100 ML IV + SPIKE MINIBAG* 100 ML IV SCH ×3 (05:48→21:15)
[2020-04-08] MEDS: PULMICORT NEB TX 0.5 MG NEB SCH ×2 (08:50→21:10)
[2020-04-08] MEDS: LEVAQUIN PREMIX IV 750 MG 750 MG/150 ML BAG IV SCH (09:10)
[2020-04-08] MEDS: LOVENOX INJ 30 MG SYR SC SCH ×2 (09:11→21:15)
[2020-04-08] MEDS: ROBITUSSIN DM PO SCH ×4 (09:12→21:16)
[2020-04-08] MEDS: VSL#3 PO SCH (09:12)
[2020-04-08] MEDS: REMDESIVIR (INVESTIGATIONAL DRUG GS-5734) 100 MG in NS 250 ML IV 250 ML IV SCH (09:12)
[2020-04-08] MEDS ORDERED: PHENERGAN INJ 25 MG IM PRN (10:06)
[2020-04-08] MEDS: NORCO 10/325 TAB PO PRN ×2 (11:13→18:00)
--- NOTE | 2020-04-08 11:57 | PCM.PROG ---
Progress Note - Progress Note for Day of Date of Exam: 04/08/20 - Subjective Subjective: IS BEING TREATED FOR PNEUMONIA DUE TO COVID-19. TODAY, HE IS ALERT AND ORIENTED, LYING IN BED ON MORNING ROUNDS. HE CONTINUES WITH COUGH, SHORTNESS OF BREATH, WEAKNESS, AND NAUSEA TODAY. HE IS CURRENTLY ON HEATED HIGH FLOW OXYGEN AND REPORTS WORSENING OF SYMPTOMS SINCE ONE DAY PRIOR. ON EXAMINATION, HEART IS REGULAR IN RATE AND RHYTHM. BILATERAL LUNGS ARE NOTED WITH SCATTERED WHEEZING THROUGHOUT. ABDOMEN IS ROUND, SOFT, AND NON-TENDER WITH NORMAL BOWEL SOUNDS NOTED IN ALL QUADRANTS. HIS VITALS THIS MORNING ARE 98.2-73-18-95%HHF-126/67. LABS WERE OBTAINED. ABNORMAL LAB VALUES INCLUDE THE FOLLOWING: RBC 4.41, HCT 40.5, BUN 21, GLUCOSE 104, CALCIUM 8.0, FERRITIN 2780, AST 64, CRP 99, ALBUMIN 2.5. AN ABG WAS OBTAINED AND REVEALED: PH 7.420, PC02 38, P02 61, HC03 24.6, FI02 63. A CHEST XRAY WAS OBTAINED AND REVEALED: Interval increase in bilateral perihilar and left basilar patchy infiltrates/opacities. Findings may be related to worsening pulmonary edema and/or infiltrates. HE IS CURRENTLY RECEIVING NS AT 125 ML/HR, ZOSYN 3.375G IV TID, LEVAQUIN 750MG IV DAILY, REMDESIVIR 100MG IV DAILY, DUONEBS QID, PULMICORT NEBS BID, MUCOMYST IN NEB [place] BID, TUSSIONEX 5ML PO Q12H PRN, ROBITUSSIN DM 10 ML PO QID, LOVENOX 30MG SC BID, ZOFRAN 4MG IV Q6H PRN, AND NORCO 10/325MG PO Q8H. HE HAS RECEIVED ONE UNIT OF CONVALESCENT PLASMA SINCE ADMISSION. WE WILL DECREASE IV FLUIDS TO 75 ML/HR AND ADD PHENERGAN 25MG IM Q6H PRN. OTHERWISE, WE PLAN TO FOLLOW UP WITH AM LABS AND CONTINUE TO MONITOR. - Past Medical Family Social History Past Med/Fam/Surg Hx: No changes since H&P Allergies: Allergies No Known Drug Allergies Allergy (Verified 04/06/20 14:55) - Review of Systems ROS: No change since H&P - Vital Signs and I&O's Vital Signs: Temperature 98.2 F Pulse Rate [Right Radial] 73 Pulse Rate 69 Respiratory Rate 22 Blood Pressure [Right Arm] 126/67 Blood Pressure 140/72 O2 Sat by Pulse Oximetry 89 Intake and Output: Intake & Output 04/05/20 04/06/20 04/07/20 04/08/20 11:59 11:59 11:59 11:59 Intake Total 3282 / 3282 5221 / 5221 Output Total 1725 / 1725 Balance 3282 / 3282 3496 / 3496 - Physical Exam Oriented: Normal Eyes: Normal Ear: Normal Nose: Normal Throat: Normal Respiratory: Generalized, Wheezes Cardiovascular: Normal : Normal Auscultation: Bowel Sounds: Normal Palpation: Normal Tenderness: Normal Skin: Normal Musculoskeletal: Normal Psychiatric: Normal Mood Description: Calm Affect: Normal Speech Pattern: Clear, Appropriate - Laboratory and Diagnostics Result Diagrams: 04/08/20 04:45 04/08/20 04:45 Labs: 04/06/20 12:50 Blood Blood Culture - Preliminary 04/06/20 12:45 Blood Blood Culture - Preliminary Laboratory WBC 4.8 X10^3/uL (3.6-10.0) 04/08/20 04:45 RBC 4.41 X10^6/uL (4.7-6.0) L 04/08/20 04:45 Hgb 13.9 g/dL (13.5-18.0) 04/08/20 04:45 Hct 40.5 % (42.0-54.0) L 04/08/20 04:45 MCV 91.9 fL (80.0-100.0) 04/08/20 04:45 MCH 31.6 pg (27.0-34.0) 04/08/20 04:45 MCHC 34.4 g/dL (33.0-35.0) 04/08/20 04:45 RDW 14.6 % (11.6-16.5) 04/08/20 04:45 Plt Count 93 X10^3/uL (150.0-450.0) L 04/08/20 04:45 MPV 8.1 fL (7.4-11.0) 04/08/20 04:45 Neut % (Auto) 81.4 % (42.0-75.0) H 04/08/20 04:45 Lymph % (Auto) 11.3 % (21.0-51.0) L 04/08/20 04:45 [place] % (Auto) 6.8 % (0.0-13.0) 04/08/20 04:45 Eos % (Auto) 0.1 % (0.9-2.9) L 04/08/20 04:45 Baso % (Auto) 0.4 % (0.2-1.0) 04/08/20 04:45 Neut # (Auto) 3.9 x10^3/uL (2.2-4.8) 04/08/20 04:45 Lymph # (Auto) 0.5 X10^3/uL (1.3-2.9) L 04/08/20 04:45 [place] # (Auto) 0.3 x10^3/uL (0.3-0.8) 04/08/20 04:45 Eos # (Auto) 0.0 x10^3/uL (0.0-0.2) 04/08/20 04:45 Baso # (Auto) 0.0 X10^3/uL (0.0-0.1) 04/08/20 04:45 Absolute Nucleated RBC 0.1 /100WBC 04/08/20 04:45 Sample Site Rr 04/08/20 04:45 ABG pH 7.420 (7.35-7.45) 04/08/20 04:45 ABG pCO2 38.0 mmHg (35.0-45.0) 04/08/20 04:45 ABG pO2 61.0 mmHg (80.0-100.0) L 04/08/20 04:45 ABG HCO3 24.6 mmol/L (22-26) 04/08/20 04:45 ABG O2 Saturation 91.0 % (90-100) 04/08/20 04:45 ABG Base Excess 0.3 mmol/L (-2.0-2.0) 04/08/20 04:45 Jose Test Pos 04/08/20 04:45 A-a Gradient 341.0 mmHg 04/08/20 04:45 FiO2 63.0 04/08/20 04:45 Blood Gas Comments Carmelo well ae 04/08/20 04:45 Sodium 137 mmol/L (136-145) 04/08/20 04:45 Corrected Sodium TNP 04/08/20 04:45 Potassium 3.8 mmol/L (3.5-5.1) 04/08/20 04:45 Chloride 104 mmol/L (98-107) 04/08/20 04:45 Carbon Dioxide 22.8 mmol/L (21-32) 04/08/20 04:45 BUN 21 mg/dL (7-18) H 04/08/20 04:45 Creatinine 1.20 mg/dL (0.70-1.30) 04/08/20 04:45 Est GFR (MDRD) Af Amer > 60 (>60) 04/08/20 04:45 Est GFR (MDRD) Non-Af > 60 (>60) 04/08/20 04:45 Glucose 104 mg/dL (65-99) H 04/08/20 04:45 Lactic Acid 1.6 mmol/L (0.4-2.0) 04/06/20 12:50 Calcium 8.0 mg/dL (8.5-10.1) L 04/08/20 04:45 Corrected Calcium 9.2 mg/dL (8.5-10.1) 04/08/20 04:45 Ferritin 2780 ng/mL (26-388) H 04/08/20 04:45 Total Bilirubin 0.70 mg/dL (0.2-1.0) 04/08/20 04:45 AST 64 Units/L (15-37) H 04/08/20 04:45 ALT 46 Units/L (12-78) 04/08/20 04:45 Alkaline Phosphatase 73 Units/L (46-116) 04/08/20 04:45 Lactate Dehydrogenase 372 Units/L (85-227) H 04/06/20 12:50 Creatine Kinase 99 Units/L (39-308) 04/06/20 12:50 CK-MB (CK-2) < 1.0 ng/mL (0-4.0) 04/06/20 12:50 CK/CKMB % Calc 1.0 % (<4) 04/06/20 12:50 Troponin I < 0.02 ng/mL (0-1.5) 04/06/20 12:50 C-Reactive Protein 99.00 mg/L (0-3.0) H 04/08/20 04:45 Total Protein 6.4 g/dL (6.4-8.2) 04/08/20 04:45 Albumin 2.5 g/dL (3.4-5.0) L 04/08/20 04:45 Globulin 3.9 g/dL (2.5-4.5) 04/08/20 04:45 Albumin/Globulin Ratio 0.6 Ratio (1.1-2.1) L 04/08/20 04:45 Specimen Type Clean catch urine 04/06/20 12:34 Urine Color Yellow (YELLOW) 04/06/20 12:34 Urine Appearance Clear (CLEAR) 04/06/20 12:34 Urine pH 5.0 (5.0 - 8.0) 04/06/20 12:34 Ur Specific Ellinger 1.020 (1.000-1.030) 04/06/20 12:34 Urine Protein 2+ (NEGATIVE) 04/06/20 12:34 Urine Glucose (UA) Negative (NEGATIVE) 04/06/20 12:34 Urine Ketones Negative (NEGATIVE) 04/06/20 12:34 Urine Occult Blood Negative (NEGATIVE) 04/06/20 12:34 Urine Nitrite Negative (NEGATIVE) 04/06/20 12:34 Urine Bilirubin Negative (NEGATIVE) 04/06/20 12:34 Urine Urobilinogen Normal (NORMAL) 04/06/20 12:34 Ur Leukocyte Esterase Negative (NEGATIVE) 04/06/20 12:34 Urine RBC None seen /HPF (0-3) 04/06/20 12:34 Urine WBC None seen /HPF (0-5) 04/06/20 12:34 Ur Squamous Epith Cells Negative /HPF (NEGATIVE) 04/06/20 12:34 Ur Renal Epithelial Cell Rare /HPF (NEGATIVE) 04/06/20 12:34 Amorphous Sediment Trace /HPF (NEGATIVE) 04/06/20 12:34 Urine Bacteria Negative /HPF (NEGATIVE) 04/06/20 12:34 Ur Culture Indicated? No/not indicated 04/06/20 12:34 Blood Type O NEGATIVE 04/07/20 17:10 - Plan (1) Pneumonia due to 2019 novel coronavirus Status: Acute Plan: NS AT 75 ML/HR, ZOSYN 3.375G IV TID, LEVAQUIN 750MG IV DAILY, REMDESIVIR 100MG IV DAILY, DUONEBS QID, PULMICORT NEBS BID, MUCOMYST IN NEB [place] BID, TUSSIONEX 5ML PO Q12H PRN, ROBITUSSIN DM 10 ML PO QID, LOVENOX 30MG SC BID, ZOFRAN 4MG IV Q6H PRN, AND NORCO 10/325MG PO Q8H, SUPPLEMENTAL OXYGEN (2) Shortness of breath Status: Acute
[2020-04-08] MEDS: PRASUGREL 10 MG PO SCH (14:53)
[2020-04-08] MEDS: ZESTRIL TAB 20 MG PO SCH ×2 (14:53→21:16)
[2020-04-08] MEDS: MICRO K EXTEN CAP 10 MEQ PO SCH ×2 (14:54→21:16)
[2020-04-08] MEDS: ASPIRIN PO SCH (14:54)
[2020-04-08] MEDS: HYDROCHLOROTHIAZIDE 12.5 MG CAP PO SCH ×2 (14:54→21:15)
[2020-04-08] MEDS: LOPRESSOR TAB 50 MG PO SCH ×2 (14:54→21:15)
[2020-04-08] MEDS: SOLU-Medrol 40 MG VIAL IVP SCH ×4 (14:55→21:17)
[2020-04-08] MEDS: ZyrTEC TAB 10 MG PO SCH (14:55)
[2020-04-08] MEDS ORDERED: XOPENEX 1.25 MG/3 ML NEBULE NEB ONE (20:01)
[2020-04-09] MEDS: XOPENEX 1.25 MG/3 ML NEBULE NEB SCH ×5 (00:37→23:30)
[2020-04-09] MEDS: MUCOMYST (RESPIRATORY USE ONLY) NEB SCH ×5 (00:37→23:30)
[2020-04-09] MEDS: NORCO 10/325 TAB PO PRN ×3 (01:35→18:15)
[2020-04-09] MEDS: TUSSIONEX PENNKINETIC SUSP PO PRN ×2 (01:38→21:15)
[2020-04-09 05:01] LABS: BASOPHILS % (AUTO) 0.1 % (0.2-1.0); EOSINOPHILS % (AUTO) 0.1 % (0.9-2.9); HEMATOCRIT 39.3 % (42.0-54.0); HEMOGLOBIN 13.6 g/dL (13.5-18.0); LYMPHOCYTES # (AUTO) 0.3 X10^3/uL (1.3-2.9); LYMPHOCYTES % (AUTO) 9.1 % (21.0-51.0); MEAN CORPUSCULAR HEMOGLOBIN 31.7 pg (27.0-34.0); MEAN CORPUSCULAR HGB CONC 34.7 g/dL (33.0-35.0); MEAN CORPUSCULAR VOLUME 91.2 fL (80.0-100.0); MEAN PLATELET VOLUME 7.9 fL (7.4-11.0); MONOCYTES # (AUTO) 0.1 x10^3/uL (0.3-0.8); MONOCYTES % (AUTO) 3.4 % (0.0-13.0); NEUTROPHILS # (AUTO) 2.8 x10^3/uL (2.2-4.8); NEUTROPHILS % (AUTO) 87.3 % (42.0-75.0); PLATELET COUNT 116 X10^3/uL (150.0-450.0); RED BLOOD COUNT 4.31 X10^6/uL (4.7-6.0); RED CELL DISTRIBUTION WIDTH 14.1 % (11.6-16.5); WHITE BLOOD COUNT 3.2 X10^3/uL (3.6-10.0)
[2020-04-09] MEDS: SOLU-Medrol 40 MG VIAL IVP SCH ×3 (05:12→21:15)
[2020-04-09] MEDS: NS 1000 ML 1,000 ML IV SCH (05:12)
[2020-04-09 05:13] LABS: ALANINE AMINOTRANSFERASE 36 Units/L (12-78); ALBUMIN 2.3 g/dL (3.4-5.0); ALKALINE PHOSPHATASE 71 Units/L (46-116); ASPARTATE AMINO TRANSFERASE 53 Units/L (15-37); BLOOD UREA NITROGEN 22 mg/dL (7-18); CALCIUM 7.9 mg/dL (8.5-10.1); CARBON DIOXIDE 21.4 mmol/L (21-32); CHLORIDE 105 mmol/L (98-107); COR CA(FOR HYPOALB) 9.3 mg/dL (8.5-10.1); COR NA(FOR HYPERGLY) 139 mmol/L (136-145); CREATININE 1.12 mg/dL (0.70-1.30); SODIUM 137 mmol/L (136-145); TOTAL PROTEIN 6.1 g/dL (6.4-8.2); eGFR NON BLACK RACES > 60 (>60)
[2020-04-09] MEDS: ZOSYN VIAL 3.375 GRAMS 3.375 G in NS 100 ML IV + SPIKE MINIBAG* 100 ML IV SCH ×3 (05:13→21:16)
--- NOTE | 2020-04-09 05:32 | RAD ---
HISTORYSOBSTUDYCHEST, 1 PILLITWTAVKOJQ13/09/2020FINDINGSThe trachea is midline. The cardiac silhouette is mildly enlarged, similar to prior exam.. Bilateral perihilar and left basilar patchy opacity/infiltrates, similar to prior exam. No pneumothorax.. The bony thorax is unremarkable.IMPRESSIONNo significant interval change.Electronically signed by: Jossy Price (Apr 09, 2020 05:32:18)
[2020-04-09] MEDS: XANAX PO PRN ×2 (05:45→14:17)
[2020-04-09 05:56] LABS: ABG ALLEN TEST POS; ABG BASE EXCESS -3.2 mmol/L (-2.0-2.0); ABG HCO3 21.2 mmol/L (22-26)
[2020-04-09] MEDS ORDERED: ZESTRIL TAB 20 MG ONE ×2 (07:35→20:29)
[2020-04-09] MEDS: LEVAQUIN PREMIX IV 750 MG 750 MG/150 ML BAG IV SCH (08:35)
[2020-04-09] MEDS: MILK OF MAGNESIA PO SCH ×2 (08:39→21:16)
[2020-04-09] MEDS: ROBITUSSIN DM PO SCH ×4 (08:40→21:36)
[2020-04-09] MEDS: LOVENOX INJ 30 MG SYR SC SCH ×2 (08:45→21:16)
[2020-04-09] MEDS: VSL#3 PO SCH (08:46)
[2020-04-09] MEDS: BUMEX TAB 1 MG PO SCH (08:46)
[2020-04-09] MEDS: COLACE CAP 100 MG PO SCH ×2 (08:47→21:15)
[2020-04-09] MEDS: HYDROCHLOROTHIAZIDE 12.5 MG CAP PO SCH ×2 (08:47→21:16)
[2020-04-09] MEDS: ASPIRIN PO SCH (08:47)
[2020-04-09] MEDS: ZyrTEC TAB 10 MG PO SCH (08:49)
[2020-04-09] MEDS: MICRO K EXTEN CAP 10 MEQ PO SCH ×2 (08:49→21:16)
[2020-04-09] MEDS: PRASUGREL 10 MG PO SCH (08:51)
[2020-04-09] MEDS: ZESTRIL TAB 20 MG PO SCH ×2 (08:53→21:15)
[2020-04-09] MEDS: LOPRESSOR TAB 50 MG PO SCH (08:53)
[2020-04-09] MEDS: PULMICORT NEB TX 0.5 MG NEB SCH ×2 (09:15→23:30)
[2020-04-09] MEDS ORDERED: XANAX PO ONE (09:24)
[2020-04-09] MEDS ORDERED: XANAX ONE (09:33)
[2020-04-09] MEDS: REMDESIVIR (INVESTIGATIONAL DRUG GS-5734) 100 MG in NS 250 ML IV 250 ML IV SCH (09:48)
[2020-04-09] MEDS: MEGACE PO SCH ×2 (11:13→21:15)
[2020-04-09] MEDS: PROzac PO SCH (11:14)
[2020-04-09] MEDS: PROCALAMINE 3 % 1,000 ML IV SCH (11:14)
[2020-04-09 12:15] LABS: CKMB % 3.3 % (<4); CREATINE KINASE 57 Units/L (39-308); CREATINE KINASE MB 1.9 ng/mL (0-4.0); TROPONIN I < 0.02 ng/mL (0-1.5)
[2020-04-09] MEDS: ZOFRAN INJ 4 MG VIAL IVP PRN (14:18)
[2020-04-09 15:59] LABS: CKMB % 4.5 % (<4); CREATINE KINASE 51 Units/L (39-308); CREATINE KINASE MB 2.3 ng/mL (0-4.0); TROPONIN I < 0.02 ng/mL (0-1.5)
[2020-04-09] MEDS ORDERED: ULTRAM PO PRN (16:37)
[2020-04-09] MEDS ORDERED: NS 500 ML IV 500 ML IV ONE (17:00)
[2020-04-09] MEDS: NS 500 ML IV 500 ML IV PRN (17:40)
[2020-04-09 20:11] LABS: CKMB % 3.8 % (<4); CREATINE KINASE 53 Units/L (39-308); TROPONIN I < 0.02 ng/mL (0-1.5)
--- NOTE | 2020-04-09 20:11 | PCM.PROG ---
Progress Note - Progress Note for Day of Date of Exam: 04/09/20 - Subjective Subjective: IS BEING TREATED FOR PNEUMONIA DUE TO COVID-19. TODAY, HE IS ALERT AND ORIENTED, LYING IN BED ON MORNING ROUNDS. HE CONTINUES WITH COUGH, SHORTNESS OF BREATH, WEAKNESS, AND NAUSEA TODAY. HE IS CURRENTLY ON HEATED HIGH FLOW OXYGEN AND DENIES INMPROVEMENT IN SYMPTOMS SINCE ONE DAY PRIOR. HE ADMITS TO MILD, INTERMITTENT CHEST DISCOMFORT TODAY. ON EXAMINATION, HEART IS REGULAR IN RATE AND RHYTHM. BILATERAL LUNGS ARE NOTED WITH SCATTERED WHEEZING THROUGHOUT. ABDOMEN IS ROUND, SOFT, AND NON-TENDER WITH NORMAL BOWEL SOUNDS NOTED IN ALL QUADRANTS. HIS VITALS THIS MORNING ARE 97.9-68-22-84%HHF-118/73. LABS WERE OBTAINED. ABNORMAL LAB VALUES INCLUDE THE FOLLOWING: WBC 3.2, RBC 4.31, HCT 39.3, BUN 22, GLUCOSE 163, CALCIUM 7.9, FERRITIN 2781, AST 53, CRP 98.60, TOTAL PROTEIN 6.1, ALBUMIN 2.3. AN ABG WAS OBTAINED AND REVEALED: PH 7.390, PC02 35, P02 56, HC03 21.2, 02 SAT 88, BASE EXCESS -3.2, FI02 43.0. BLOOD CULTURES ARE PENDING. A CHEST XRAY WAS OBTAINED AND REVEALED: NO SIGNIFICANT INTERVAL CHANGE. HE IS CURRENTLY RECEIVING NS AT 75 ML/HR, ZOSYN 3.375G IV TID, LEVAQUIN 750MG IV DAILY, REMDESIVIR 100MG IV DAILY, DUONEBS QID, PULMICORT NEBS BID, MUCOMYST IN NEB [place] BID, TUSSIONEX 5ML PO Q12H PRN, ROBITUSSIN DM 10 ML PO QID, LOVENOX 30MG SC BID, ZOFRAN 4MG IV Q6H PRN, AND NORCO 10/325MG PO Q8H. HE HAS RECEIVED ONE UNIT OF CONVALESCENT PLASMA SINCE ADMISSION. WE WILL OBTAIN SER IAL CARDIAC ENZYMES AND EKGS TODAY. OTHERWISE, WE PLAN TO FOLLOW UP WITH AM LABS AND CONTINUE TO MONITOR. - Past Medical Family Social History Past Med/Fam/Surg Hx: No changes since H&P Allergies: Allergies No Known Drug Allergies Allergy (Verified 04/06/20 14:55) - Review of Systems ROS: No change since H&P - Vital Signs and I&O's Vital Signs: Temperature 98.2 F Pulse Rate [Right Radial] 56 Pulse Rate 67 Respiratory Rate 20 Blood Pressure [Right Arm] 98/56 Blood Pressure 140/72 O2 Sat by Pulse Oximetry 92 Intake and Output: Intake & Output 04/07/20 04/08/20 04/09/20 04/10/20 11:59 11:59 11:59 11:59 Intake Total 3282 / 3282 5221 / 5221 3060 / 3060 800 / 800 Output Total 1725 / 1725 700 / 700 Balance 3282 / 3282 3496 / 3496 3060 / 3060 100 / 100 - Physical Exam Oriented: Normal Eyes: Normal Ear: Normal Nose: Normal Throat: Normal Respiratory: Generalized, Wheezes Cardiovascular: Normal : Normal Auscultation: Bowel Sounds: Normal Tenderness: Normal Skin: Normal Musculoskeletal: Normal Psychiatric: Normal Mood Description: Calm Affect: Normal Speech Pattern: Clear, Appropriate - Laboratory and Diagnostics Result Diagrams: 04/09/20 04:25 04/09/20 04:25 Labs: 04/06/20 12:50 Blood Blood Culture - Preliminary 04/06/20 12:45 Blood Blood Culture - Preliminary Laboratory WBC 3.2 X10^3/uL (3.6-10.0) L 04/09/20 04:25 RBC 4.31 X10^6/uL (4.7-6.0) L 04/09/20 04:25 Hgb 13.6 g/dL (13.5-18.0) 04/09/20 04:25 Hct 39.3 % (42.0-54.0) L 04/09/20 04:25 MCV 91.2 fL (80.0-100.0) 04/09/20 04:25 MCH 31.7 pg (27.0-34.0) 04/09/20 04:25 MCHC 34.7 g/dL (33.0-35.0) 04/09/20 04:25 RDW 14.1 % (11.6-16.5) 04/09/20 04:25 Plt Count 116 X10^3/uL (150.0-450.0) L 04/09/20 04:25 MPV 7.9 fL (7.4-11.0) 04/09/20 04:25 Neut % (Auto) 87.3 % (42.0-75.0) H 04/09/20 04:25 Lymph % (Auto) 9.1 % (21.0-51.0) L 04/09/20 04:25 [place] % (Auto) 3.4 % (0.0-13.0) 04/09/20 04:25 Eos % (Auto) 0.1 % (0.9-2.9) L 04/09/20 04:25 Baso % (Auto) 0.1 % (0.2-1.0) L 04/09/20 04:25 Neut # (Auto) 2.8 x10^3/uL (2.2-4.8) 04/09/20 04:25 Lymph # (Auto) 0.3 X10^3/uL (1.3-2.9) L 04/09/20 04:25 [place] # (Auto) 0.1 x10^3/uL (0.3-0.8) L 04/09/20 04:25 Eos # (Auto) 0.0 x10^3/uL (0.0-0.2) 04/09/20 04:25 Baso # (Auto) 0.0 X10^3/uL (0.0-0.1) 04/09/20 04:25 Absolute Nucleated RBC 0.1 /100WBC 04/09/20 04:25 Sample Site Rr 04/09/20 05:00 ABG pH 7.390 (7.35-7.45) 04/09/20 05:00 ABG pCO2 35.0 mmHg (35.0-45.0) 04/09/20 05:00 ABG pO2 56.0 mmHg (80.0-100.0) L 04/09/20 05:00 ABG HCO3 21.2 mmol/L (22-26) L 04/09/20 05:00 ABG O2 Saturation 88.0 % (90-100) L 04/09/20 05:00 ABG Base Excess -3.2 mmol/L (-2.0-2.0) L 04/09/20 05:00 Jose Test Pos 04/09/20 05:00 A-a Gradient 207.0 mmHg 04/09/20 05:00 FiO2 43.0 04/09/20 05:00 Blood Gas Comments Carmelo well sw 04/09/20 05:00 Sodium 137 mmol/L (136-145) 04/09/20 04:25 Corrected Sodium 139 mmol/L (136-145) 04/09/20 04:25 Potassium 3.9 mmol/L (3.5-5.1) 04/09/20 04:25 Chloride 105 mmol/L (98-107) 04/09/20 04:25 Carbon Dioxide 21.4 mmol/L (21-32) 04/09/20 04:25 BUN 22 mg/dL (7-18) H 04/09/20 04:25 Creatinine 1.12 mg/dL (0.70-1.30) 04/09/20 04:25 Est GFR (MDRD) Af Amer > 60 (>60) 04/09/20 04:25 Est GFR (MDRD) Non-Af > 60 (>60) 04/09/20 04:25 Glucose 163 mg/dL (65-99) H 04/09/20 04:25 Lactic Acid 1.6 mmol/L (0.4-2.0) 04/06/20 12:50 Calcium 7.9 mg/dL (8.5-10.1) L 04/09/20 04:25 Corrected Calcium 9.3 mg/dL (8.5-10.1) 04/09/20 04:25 Ferritin 2781 ng/mL (26-388) H 04/09/20 04:25 Total Bilirubin 0.50 mg/dL (0.2-1.0) 04/09/20 04:25 AST 53 Units/L (15-37) H 04/09/20 04:25 ALT 36 Units/L (12-78) 04/09/20 04:25 Alkaline Phosphatase 71 Units/L (46-116) 04/09/20 04:25 Lactate Dehydrogenase 372 Units/L (85-227) H 04/06/20 12:50 Creatine Kinase 51 Units/L (39-308) 04/09/20 15:15 CK-MB (CK-2) 2.3 ng/mL (0-4.0) 04/09/20 15:15 CK/CKMB % Calc 4.5 % (<4) 04/09/20 15:15 Troponin I < 0.02 ng/mL (0-1.5) 04/09/20 15:15 C-Reactive Protein 98.60 mg/L (0-3.0) H 04/09/20 04:25 Total Protein 6.1 g/dL (6.4-8.2) L 04/09/20 04:25 Albumin 2.3 g/dL (3.4-5.0) L 04/09/20 04:25 Globulin 3.8 g/dL (2.5-4.5) 04/09/20 04:25 Albumin/Globulin Ratio 0.6 Ratio (1.1-2.1) L 04/09/20 04:25 Specimen Type Clean catch urine 04/06/20 12:34 Urine Color Yellow (YELLOW) 04/06/20 12:34 Urine Appearance Clear (CLEAR) 04/06/20 12:34 Urine pH 5.0 (5.0 - 8.0) 04/06/20 12:34 Ur Specific [place] 1.020 (1.000-1.030) 04/06/20 12:34 Urine Protein 2+ (NEGATIVE) 04/06/20 12:34 Urine Glucose (UA) Negative (NEGATIVE) 04/06/20 12:34 Urine Ketones Negative (NEGATIVE) 04/06/20 12:34 Urine Occult Blood Negative (NEGATIVE) 04/06/20 12:34 Urine Nitrite Negative (NEGATIVE) 04/06/20 12:34 Urine Bilirubin Negative (NEGATIVE) 04/06/20 12:34 Urine Urobilinogen Normal (NORMAL) 04/06/20 12:34 Ur Leukocyte Esterase Negative (NEGATIVE) 04/06/20 12:34 Urine RBC None seen /HPF (0-3) 04/06/20 12:34 Urine WBC None seen /HPF (0-5) 04/06/20 12:34 Ur Squamous Epith Cells Negative /HPF (NEGATIVE) 04/06/20 12:34 Ur Renal Epithelial Cell Rare /HPF (NEGATIVE) 04/06/20 12:34 Amorphous Sediment Trace /HPF (NEGATIVE) 04/06/20 12:34 Urine Bacteria Negative /HPF (NEGATIVE) 04/06/20 12:34 Ur Culture Indicated? No/not indicated 04/06/20 12:34 Blood Type O NEGATIVE 04/07/20 17:10 - Plan (1) Pneumonia due to 2019 novel coronavirus Status: Acute Plan: NS AT 75 ML/HR, ZOSYN 3.375G IV TID, LEVAQUIN 750MG IV DAILY, REMDESIVIR 100MG IV DAILY, DUONEBS QID, PULMICORT NEBS BID, MUCOMYST IN NEB [place] BID, TUSSIONEX 5ML PO Q12H PRN, ROBITUSSIN DM 10 ML PO QID, LOVENOX 30MG SC BID, ZOFRAN 4MG IV Q6H PRN, AND NORCO 10/325MG PO Q8H, SUPPLEMENTAL OXYGEN (2) Shortness of breath Status: Acute
[2020-04-10] MEDS: NORCO 10/325 TAB PO PRN ×2 (03:16→18:12)
[2020-04-10 05:11] LABS: BASOPHILS % (AUTO) 0.1 % (0.2-1.0); HEMATOCRIT 36.6 % (42.0-54.0); HEMOGLOBIN 12.7 g/dL (13.5-18.0); LYMPHOCYTES # (AUTO) 0.4 X10^3/uL (1.3-2.9); LYMPHOCYTES % (AUTO) 5.4 % (21.0-51.0); MEAN CORPUSCULAR HEMOGLOBIN 31.5 pg (27.0-34.0); MEAN CORPUSCULAR HGB CONC 34.7 g/dL (33.0-35.0); MEAN CORPUSCULAR VOLUME 90.6 fL (80.0-100.0); MEAN PLATELET VOLUME 8.3 fL (7.4-11.0); MONOCYTES # (AUTO) 0.3 x10^3/uL (0.3-0.8); MONOCYTES % (AUTO) 4.3 % (0.0-13.0); NEUTROPHILS # (AUTO) 6.9 x10^3/uL (2.2-4.8); NEUTROPHILS % (AUTO) 90.2 % (42.0-75.0); PLATELET COUNT 138 X10^3/uL (150.0-450.0); RED BLOOD COUNT 4.04 X10^6/uL (4.7-6.0); RED CELL DISTRIBUTION WIDTH 13.8 % (11.6-16.5); WHITE BLOOD COUNT 7.7 X10^3/uL (3.6-10.0)
[2020-04-10 05:25] LABS: ALANINE AMINOTRANSFERASE 35 Units/L (12-78); ALBUMIN 2.2 g/dL (3.4-5.0); ALKALINE PHOSPHATASE 70 Units/L (46-116); ASPARTATE AMINO TRANSFERASE 46 Units/L (15-37); BLOOD UREA NITROGEN 31 mg/dL (7-18); CALCIUM 8.3 mg/dL (8.5-10.1); CARBON DIOXIDE 22.7 mmol/L (21-32); CHLORIDE 105 mmol/L (98-107); COR CA(FOR HYPOALB) 9.7 mg/dL (8.5-10.1); COR NA(FOR HYPERGLY) 138 mmol/L (136-145); CREATININE 1.19 mg/dL (0.70-1.30); SODIUM 137 mmol/L (136-145); TOTAL PROTEIN 5.7 g/dL (6.4-8.2); eGFR NON BLACK RACES > 60 (>60)
[2020-04-10] MEDS: ZOSYN VIAL 3.375 GRAMS 3.375 G in NS 100 ML IV + SPIKE MINIBAG* 100 ML IV SCH ×2 (05:27→14:17)
[2020-04-10] MEDS: SOLU-Medrol 40 MG VIAL IVP SCH ×2 (05:27→14:16)
[2020-04-10 05:50] LABS: BAND NEUTROPHILS % 2 % (0-10); PLATELET MORPHOLOGY COMMENT NORMAL (NORMAL)
[2020-04-10 06:02] LABS: ABG HCO3 23.8 mmol/L (22-26)
[2020-04-10 06:03] LABS: ABG ALLEN TEST POSS
[2020-04-10] MEDS: XOPENEX 1.25 MG/3 ML NEBULE NEB SCH ×3 (06:20→17:25)
[2020-04-10] MEDS: MUCOMYST (RESPIRATORY USE ONLY) NEB SCH ×3 (06:20→17:25)
--- NOTE | 2020-04-10 06:30 | RAD ---
HISTORYSOBSTUDYCHEST, 1 VIEWCOMPARISONOne day priorTECHNIQUEAP view of the chestFINDINGSCardiac silhouette is stably enlarged. Worsened diffuse bilateral airspace disease. No pneumothorax.IMPRESSIONWorsened diffuse bilateral airspace disease. May represent pulmonary edema or pneumoniaElectronically signed by: David Kim (Apr 10, 2020 06:30:04)
[2020-04-10] MEDS: XANAX PO PRN ×2 (06:45→10:41)
[2020-04-10] MEDS: LEVAQUIN PREMIX IV 750 MG 750 MG/150 ML BAG IV SCH (08:16)
[2020-04-10] MEDS: LOVENOX INJ 30 MG SYR SC SCH (08:17)
[2020-04-10] MEDS ORDERED: LOPRESSOR TAB 25 MG PO SCH (09:00)
[2020-04-10] MEDS ORDERED: TOPROL XL PO SCH (09:00)
[2020-04-10] MEDS ORDERED: NS 1000 ML 1,000 ML IV SCH (09:00)
[2020-04-10] MEDS: PULMICORT NEB TX 0.5 MG NEB SCH (09:35)
[2020-04-10] MEDS ORDERED: ZESTRIL TAB 20 MG ONE (09:41)
[2020-04-10] MEDS: VSL#3 PO SCH (09:45)
[2020-04-10] MEDS: BUMEX TAB 1 MG PO SCH (09:48)
[2020-04-10] MEDS: ASPIRIN PO SCH (09:48)
[2020-04-10] MEDS: HYDROCHLOROTHIAZIDE 12.5 MG CAP PO SCH (09:49)
[2020-04-10] MEDS: MEGACE PO SCH (09:49)
[2020-04-10] MEDS: PROzac PO SCH (09:50)
[2020-04-10] MEDS: MILK OF MAGNESIA PO SCH (09:52)
[2020-04-10] MEDS: PRASUGREL 10 MG PO SCH (09:52)
[2020-04-10] MEDS: REMDESIVIR (INVESTIGATIONAL DRUG GS-5734) 100 MG in NS 250 ML IV 250 ML IV SCH (09:53)
[2020-04-10] MEDS: ROBITUSSIN DM PO SCH ×3 (09:53→18:07)
[2020-04-10] MEDS: ZESTRIL TAB 20 MG PO SCH (09:53)
[2020-04-10] MEDS: ZyrTEC TAB 10 MG PO SCH (09:54)
[2020-04-10] MEDS: COLACE CAP 100 MG PO SCH (09:55)
[2020-04-10] MEDS: MICRO K EXTEN CAP 10 MEQ PO SCH (09:56)
[2020-04-10] MEDS: TUSSIONEX PENNKINETIC SUSP PO PRN (09:56)
--- NOTE | 2020-04-10 10:15 | PCM.PROG ---
Progress Note - Progress Note for Day of Date of Exam: 04/10/20 - Subjective Subjective: IS BEING TREATED FOR PNEUMONIA DUE TO COVID-19. TODAY, HE IS ALERT AND ORIENTED, LYING IN BED ON MORNING ROUNDS. HE CONTINUES WITH COUGH, SHORTNESS OF BREATH, WEAKNESS, AND NAUSEA TODAY. HE IS CURRENTLY ON HEATED HIGH FLOW OXYGEN. HE ADMITS TO SLIGHT IMPROVEMENT IN SYMPTOMS TODAY. HE DENIES CHEST PAIN THIS MORNING. ON EXAMINATION, HEART IS REGULAR IN RATE AND RHYTHM. BILATERAL LUNGS ARE NOTED WITH SCATTERED WHEEZING THROUGHOUT. ABDOMEN IS ROUND, SOFT, AND NON-TENDER WITH NORMAL BOWEL SOUNDS NOTED IN ALL QUADRANTS. HIS VITALS THIS MORNING ARE 97.6-57-22-94%HHF-105/54. LABS WERE OBTAINED. ABNORMAL LAB VALUES INCLUDE THE FOLLOWING: RBC 4.04, HGB 12.7, HCT 36.6, PLT COUNT 138, BUN 31, GLUCOSE 140, CALCIUM 8.3, FERRITIN 2256, AST 46, CRP 38.10, TOTAL PROTEIN 5.7, ALBUMIN 2.2. AN ABG WAS OBTAINED AND REVEALED: PH 7.440, PC02 35, P02 70, HC03 23.8, 02 SAT 94, FI02 88. BLOOD CULTURES ARE PENDING. A CHEST XRAY WAS OBTAINED AND REVEALED: Worsened diffuse bilateral airspace disease. May represent pulmonary edema or pneumonia. HE IS CURRENTLY RECEIVING NS AT 75 ML/HR, ZOSYN 3.375G IV TID, LEVAQUIN 750MG IV DAILY, REMDESIVIR 100MG IV DAILY, DUONEBS QID, PULMICORT NEBS BID, MUCOMYST IN NEB [place] BID, TUSSIONEX 5ML PO Q12H PRN, ROBITUSSIN DM 10 ML PO QID, LOVENOX 30MG SC BID, ZOFRAN 4MG IV Q6H PRN, AND NORCO 10/325MG PO Q8H. HE HAS RECEIVED ONE UNIT OF CONVALESCENT PLASMA SINCE [place]. WE WILL TRANSFUSE ANOTHER UNIT WHEN IT IS AVAILABLE. TODAY, WE WILL DECREASE HIS METOPROLOL TO 12.5MG PO DAILY. OTHERWISE, WE PLAN TO FOLLOW UP WITH AM LABS AND CONTINUE TO MONITOR. - Past Medical Family Social History Past Med/Fam/Surg Hx: No changes since H&P Allergies: Allergies No Known Drug Allergies Allergy (Verified 04/06/20 14:55) - Review of Systems ROS: No change since H&P - Vital Signs and I&O's Vital Signs: Temperature 97.6 F Pulse Rate [Right Radial] 57 Pulse Rate 88 Respiratory Rate 14 Blood Pressure [Right Arm] 105/54 Blood Pressure 140/72 O2 Sat by Pulse Oximetry 92 Intake and Output: Intake & Output 04/07/20 04/08/20 04/09/20 04/10/20 11:59 11:59 11:59 11:59 Intake Total 3282 / 3282 5221 / 5221 3060 / 3060 1974 Output Total 1725 / 1725 1750 / 1750 Balance 3282 / 3282 3496 / 3496 3060 / 3060 225 / 225 - Physical Exam Oriented: Normal Eyes: Normal Ear: Normal Nose: Normal Throat: Normal Respiratory: Generalized, Wheezes Cardiovascular: Normal : Normal Auscultation: Bowel Sounds: Normal Palpation: Normal Tenderness: Normal Skin: Normal Musculoskeletal: Normal Psychiatric: Normal Mood Description: Calm Affect: Normal Speech Pattern: Clear, Appropriate - Laboratory and Diagnostics Result Diagrams: 04/10/20 04:35 04/10/20 04:35 Labs: 04/10/20 06:46 Sputum - Expectorated Sputum - Final 04/06/20 12:50 Blood Blood Culture - Preliminary 04/06/20 12:45 Blood Blood Culture - Preliminary Laboratory WBC 7.7 X10^3/uL (3.6-10.0) 04/10/20 04:35 RBC 4.04 X10^6/uL (4.7-6.0) L 04/10/20 04:35 Hgb 12.7 g/dL (13.5-18.0) L 04/10/20 04:35 Hct 36.6 % (42.0-54.0) L 04/10/20 04:35 MCV 90.6 fL (80.0-100.0) 04/10/20 04:35 MCH 31.5 pg (27.0-34.0) 04/10/20 04:35 MCHC 34.7 g/dL (33.0-35.0) 04/10/20 04:35 RDW 13.8 % (11.6-16.5) 04/10/20 04:35 Plt Count 138 X10^3/uL (150.0-450.0) L 04/10/20 04:35 Plt Count Comment Adequate (ADEQUATE) 04/10/20 04:35 MPV 8.3 fL (7.4-11.0) 04/10/20 04:35 Neut % (Auto) 90.2 % (42.0-75.0) H 04/10/20 04:35 Lymph % (Auto) 5.4 % (21.0-51.0) L 04/10/20 04:35 [place] % (Auto) 4.3 % (0.0-13.0) 04/10/20 04:35 Eos % (Auto) 0.0 % (0.9-2.9) L 04/10/20 04:35 Baso % (Auto) 0.1 % (0.2-1.0) L 04/10/20 04:35 Neut # (Auto) 6.9 x10^3/uL (2.2-4.8) H 04/10/20 04:35 Lymph # (Auto) 0.4 X10^3/uL (1.3-2.9) L 04/10/20 04:35 [place] # (Auto) 0.3 x10^3/uL (0.3-0.8) 04/10/20 04:35 Eos # (Auto) 0.0 x10^3/uL (0.0-0.2) 04/10/20 04:35 Baso # (Auto) 0.0 X10^3/uL (0.0-0.1) 04/10/20 04:35 Absolute Nucleated RBC 0.1 /100WBC 04/10/20 04:35 Total Counted 100 04/10/20 04:35 Neutrophils % (Manual) 88 % (39-76) H 04/10/20 04:35 Band Neutrophils % 2 % (0-10) 04/10/20 04:35 Lymphocytes % (Manual) 7 % (13-43) L 04/10/20 04:35 Monocytes % (Manual) 3 % (4-9) L 04/10/20 04:35 Plt Morphology Comment Normal (NORMAL) 04/10/20 04:35 RBC Morphology Normal (NORMAL) 04/10/20 04:35 Sample Site R rad 04/10/20 05:56 ABG pH 7.440 (7.35-7.45) 04/10/20 05:56 ABG pCO2 35.0 mmHg (35.0-45.0) 04/10/20 05:56 ABG pO2 70.0 mmHg (80.0-100.0) L 04/10/20 05:56 ABG HCO3 23.8 mmol/L (22-26) 04/10/20 05:56 ABG O2 Saturation 94.0 % (90-100) 04/10/20 05:56 ABG Base Excess 0.0 mmol/L (-2.0-2.0) 04/10/20 05:56 Jose Test Poss 04/10/20 05:56 A-a Gradient 514.0 mmHg 04/10/20 05:56 FiO2 88.0 04/10/20 05:56 Blood Gas Comments Carmelo well kb 04/10/20 05:56 Sodium 137 mmol/L (136-145) 04/10/20 04:35 Corrected Sodium 138 mmol/L (136-145) 04/10/20 04:35 Potassium 3.7 mmol/L (3.5-5.1) 04/10/20 04:35 Chloride 105 mmol/L (98-107) 04/10/20 04:35 Carbon Dioxide 22.7 mmol/L (21-32) 04/10/20 04:35 BUN 31 mg/dL (7-18) H 04/10/20 04:35 Creatinine 1.19 mg/dL (0.70-1.30) 04/10/20 04:35 Est GFR (MDRD) Af Amer > 60 (>60) 04/10/20 04:35 Est GFR (MDRD) Non-Af > 60 (>60) 04/10/20 04:35 Glucose 140 mg/dL (65-99) H 04/10/20 04:35 Lactic Acid 1.6 mmol/L (0.4-2.0) 04/06/20 12:50 Calcium 8.3 mg/dL (8.5-10.1) L 04/10/20 04:35 Corrected Calcium 9.7 mg/dL (8.5-10.1) 04/10/20 04:35 Ferritin 2256 ng/mL (26-388) H 04/10/20 04:35 Total Bilirubin 0.50 mg/dL (0.2-1.0) 04/10/20 04:35 AST 46 Units/L (15-37) H 04/10/20 04:35 ALT 35 Units/L (12-78) 04/10/20 04:35 Alkaline Phosphatase 70 Units/L (46-116) 04/10/20 04:35 Lactate Dehydrogenase 372 Units/L (85-227) H 04/06/20 12:50 Creatine Kinase 53 Units/L (39-308) 04/09/20 19:25 CK-MB (CK-2) 2.0 ng/mL (0-4.0) 04/09/20 19:25 CK/CKMB % Calc 3.8 % (<4) 04/09/20 19:25 Troponin I < 0.02 ng/mL (0-1.5) 04/09/20 19:25 C-Reactive Protein 38.10 mg/L (0-3.0) H 04/10/20 04:35 B-Natriuretic Peptide 56.8 pg/mL (0-79) 04/10/20 04:35 Total Protein 5.7 g/dL (6.4-8.2) L 04/10/20 04:35 Albumin 2.2 g/dL (3.4-5.0) L 04/10/20 04:35 Globulin 3.5 g/dL (2.5-4.5) 04/10/20 04:35 Albumin/Globulin Ratio 0.6 Ratio (1.1-2.1) L 04/10/20 04:35 Specimen Type Clean catch urine 04/06/20 12:34 Urine Color Yellow (YELLOW) 04/06/20 12:34 Urine Appearance Clear (CLEAR) 04/06/20 12:34 Urine pH 5.0 (5.0 - 8.0) 04/06/20 12:34 Ur Specific [place] 1.020 (1.000-1.030) 04/06/20 12:34 Urine Protein 2+ (NEGATIVE) 04/06/20 12:34 Urine Glucose (UA) Negative (NEGATIVE) 04/06/20 12:34 Urine Ketones Negative (NEGATIVE) 04/06/20 12:34 Urine Occult Blood Negative (NEGATIVE) 04/06/20 12:34 Urine Nitrite Negative (NEGATIVE) 04/06/20 12:34 Urine Bilirubin Negative (NEGATIVE) 04/06/20 12:34 Urine Urobilinogen Normal (NORMAL) 04/06/20 12:34 Ur Leukocyte Esterase Negative (NEGATIVE) 04/06/20 12:34 Urine RBC None seen /HPF (0-3) 04/06/20 12:34 Urine WBC None seen /HPF (0-5) 04/06/20 12:34 Ur Squamous Epith Cells Negative /HPF (NEGATIVE) 04/06/20 12:34 Ur Renal Epithelial Cell Rare /HPF (NEGATIVE) 04/06/20 12:34 Amorphous Sediment Trace /HPF (NEGATIVE) 04/06/20 12:34 Urine Bacteria Negative /HPF (NEGATIVE) 04/06/20 12:34 Ur Culture Indicated? No/not indicated 04/06/20 12:34 Blood Type O NEGATIVE 04/07/20 17:10 - Plan (1) Pneumonia due to 2019 novel coronavirus Status: Acute Plan: NS AT 75 ML/HR, ZOSYN 3.375G IV TID, LEVAQUIN 750MG IV DAILY, REMDESIVIR 100MG IV DAILY, DUONEBS QID, PULMICORT NEBS BID, MUCOMYST IN NEB [place] BID, TUSSIONEX 5ML PO Q12H PRN, ROBITUSSIN DM 10 ML PO QID, LOVENOX 30MG SC BID, ZOFRAN 4MG IV Q6H PRN, AND NORCO 10/325MG PO Q8H, SUPPLEMENTAL OXYGEN (2) Shortness of breath Status: Acute (3) HTN (hypertension) Status: Chronic Qualifiers: Hypertension type: essential hypertension Qualified Code(s): I10 - Essential (primary) hypertension (4) Anxiety Status: Chronic (5) Coronary artery disease Status: Chronic Qualifiers: Coronary Disease-Associated Artery/Lesion type: [place] artery [place] vs. transplanted heart: [place] heart Associated angina: angina presence unspecified Qualified Code(s): I25.10 - Atherosclerotic heart disease of [place] coronary artery without angina pectoris (6) Congestive heart failure Status: Chronic Qualifiers: Heart failure type: unspecified Heart failure chronicity: chronic Qualified Code(s): I50.9 - Heart failure, unspecified
[2020-04-10] MEDS: PROCALAMINE 3 % 1,000 ML IV SCH ×2 (11:34→15:03)
[2020-04-10] MEDS ORDERED: ALBUMIN HUMAN 25%- 100 ML 100 ML IV SCH (12:00)
[2020-04-10 18:17] VITALS: BP 128/60
== END 2020-04-10 18:45 | disposition short-term general hospital (02) | DRG 177 ==
LOC: ER 11:33 → MED/SURG 11:33 → OBSVTOIN 14:54 → MED/SURG 15:17 → ICU 04-10 08:41
PROVIDERS: ADMIT Internal Medicine; ATTEND Internal Medicine
DX: R26.81 Unsteadiness on feet; E78.5 Hyperlipidemia, unspecified; U07.1 COVID-19; J12.89 Other viral pneumonia; I50.9 Heart failure, unspecified; Z98.61 Coronary angioplasty status; R94.31 Abnormal electrocardiogram [ECG] [EKG]; I25.810 Atherosclerosis of coronary artery bypass graft(s) without angina pectoris; R11.0 Nausea; R07.9 Chest pain, unspecified; I10 Essential (primary) hypertension; F41.9 Anxiety disorder, unspecified